=== PATIENT | female | born 1960 | race Two or more races ===

== ENCOUNTER 2021-03-23 06:58 | Day surgery (SDC) | payer OTHER ==
[~2021-03-23 06:58] MED LIST: BAYER THERAPY325 MG PO; CYMBALTA PO; LIRICA PO; NORV PO; TENORMIN25 MG PO
== END 2021-03-23 11:35 | disposition home or self-care (01) ==
LOC: CIR.AMB 06:58
PROVIDERS: ATTEND Anesthesiology Pain Medicine
DX: M48.061 Spinal stenosis, lumbar region without neurogenic claudication (principal)

== ENCOUNTER 2023-05-22 08:45 | Inpatient (IN) | payer OTHER ==
[~2023-05-22] VITALS: Ht 157.5 cm; Wt 77.1 kg
[2023-05-22] MEDS ORDERED: LOSARTAN-HCTZ1 EAC1 PO (10:13)
[2023-05-27] MEDS ORDERED: MEDROLPACK PO (10:05)
[2023-05-27] MEDS ORDERED: PERCOCET 5-3251 EACH PO (10:05)
[2023-05-27] MEDS ORDERED: COLACE100 MG PO (10:06)
[2023-05-27] MEDS ORDERED: AMOX-CLAV 875-1 EACH PO (10:06)
[2023-05-27] MEDS ORDERED: GABAPENTIN100 M2 PO (10:06)
[2023-05-27] MEDS ORDERED: NEURONTIN800 MG PO (10:07)
[2023-05-27] MEDS ORDERED: ZOFRAN8 MG PO (10:07)
[2023-05-28 06:50] LABS: HEMATOCRIT 32.5 % (36.0-45.00); HEMOGLOBIN 10.9 g/dL (12.0-15.00); MEAN CELL VOLUME 87.2 fL (80.00-100.00); MEAN CORPUSCULAR HEMOGLOBIN 29.3 pg (27.00-32.0); MEAN CORPUSCULAR HGB CONC 33.6 g/dl (32.0-36.0); PLATELET COUNT 374 K/uL (150-450); RED BLOOD COUNT 3.72 M/uL (4.00-6.00); RED CELL DISTRIBUTION WIDTH 14.2 % (11.5-14.5)
[2023-05-28 07:08] LABS: CALCIUM 8.8 mg/dL (8.5-10.1); CREATININE SERUM 0.78 mg/dL (0.55-1.02); GFR 74.12; POTASSIUM 4.63 mEq/L (3.5-5.1)
== END 2023-05-29 09:59 | disposition home or self-care (01) | DRG 455 ==
LOC: O/R 05-27 07:49 → SURH 05-27 07:49
PROVIDERS: ADMIT Orthopaedic Surgery Orthopaedic Surgery of the Spine; ATTEND Orthopaedic Surgery Orthopaedic Surgery of the Spine
PROC: 0SG1071 Fusion of 2 or more Lumbar Vertebral Joints with Autologous Tissue Substitute, Posterior Approach, Posterior Column, Open Approach (ICD-10-PCS; 2023-05-27)
PROC: 0SG10K1 Fusion of 2 or more Lumbar Vertebral Joints with Nonautologous Tissue Substitute, Posterior Approach, Posterior Column, Open Approach (ICD-10-PCS; 2023-05-27)
PROC: 0QB30ZZ Excision of Left Pelvic Bone, Open Approach (ICD-10-PCS; 2023-05-27)
PROC: 0QH004Z Insertion of Internal Fixation Device into Lumbar Vertebra, Open Approach (ICD-10-PCS; 2023-05-27)
PROC: 07DR0ZZ Extraction of Iliac Bone Marrow, Open Approach (ICD-10-PCS; 2023-05-27)
PROC: 4A1104G Monitoring of Peripheral Nervous Electrical Activity, Intraoperative, Open Approach (ICD-10-PCS; 2023-05-27)
PROC: XRGC0R7 Fusion of 2 or more Lumbar Vertebral Joints using Custom-Made Anatomically Designed Interbody Fusion Device, Open Approach, New Technology Group 7 (ICD-10-PCS; principal; 2023-05-27 10:30)
PROC: BB24ZZZ Computerized Tomography (CT Scan) of Bilateral Lungs (ICD-10-PCS; 2023-05-28)
DX: M41.26 Other idiopathic scoliosis, lumbar region (principal); M48.062 Spinal stenosis, lumbar region with neurogenic claudication; M51.36 Other intervertebral disc degeneration, lumbar region; I10 Essential (primary) hypertension; R06.02 Shortness of breath